=== PATIENT | male | born 1960 | race Caucasian/White ===

== ENCOUNTER 2019-07-23 13:55 | Emergency (ER) | payer OTHER ==
[~2019-07-23] VITALS: Ht 198.1 cm; Wt 118.5 kg
[2019-07-23] MEDS ORDERED: NORMAL SALINE IC ONE (14:20)
[2019-07-23] MEDS ORDERED: PHENYLEPHRINE IC ONE (14:20)
[2019-07-23] MEDS ORDERED: LIDOcaine 1% W/epiNEPHrine 1:200,000 10ml vial IJ ONE (14:55)
[2019-07-23] MEDS ORDERED: BICA50TA48 PO (16:02)
[2019-07-23] MEDS ORDERED: TADA5TAB2 PO (16:02)
--- NOTE | 2019-07-23 16:27 | NUR ---
PT LAYING IN BED, LIGHTS OFF, DR. Samano TO COME BACK TO ROOM. PT KNOWS TO ASK FOR HELP IF NEEDED. HE REPORTS HE IS TRYING TO RELAX.
[2019-07-23 17:09] VITALS: BP 159/97
== END 2019-07-23 17:11 | disposition home or self-care (01) ==
LOC: ER 13:56
DX: N48.30 Priapism, unspecified (principal); I10 Essential (primary) hypertension; R10.30 Lower abdominal pain, unspecified; F10.99 Alcohol use, unspecified with unspecified alcohol-induced disorder; Z79.899 Other long term (current) drug therapy; Y90.9 Presence of alcohol in blood, level not specified
CPT/HCPCS: 54235; 99284; J2370